=== PATIENT | female | born 1985 | race African-American/Black ===

== ENCOUNTER 2017-03-03 09:08 | Inpatient (IN) ==
[2017-03-03] MEDS: LACTATED RINGERS 1,000 ML IV SCH (11:48)
[2017-03-03] MEDS ORDERED: BUTORPHANOL 2 MG/ML VIAL IV PRN (12:02)
[2017-03-03 12:22] LABS: Basophils % 0.2 % (0.0-0.8); Eosinophils % 0.2 % (0.00-10.9); Hematocrit 37.6 VOL% (35.7-47.0); Hemoglobin 12.5 GM/DL (12.0-16.0); Immature Granulocytes % 0.8 %; Lymphocytes # 1.4 10*3/uL (1.4-4.0); Lymphocytes % 10.3 % (21.3-54.2); Mean Corpuscular HGB Conc 33.2 GM/DL (32-36); Mean Corpuscular Hemoglobin 29 PG (27-34); Mean Corpuscular Volume 88.5 FL (87-102); Mean Platelet Volume 12.8 FL (9.6-12.0); Monocytes # 0.6 10*3/uL (0.11-0.8); Monocytes % 4.4 % (1.7-12.7); Neutrophils # 11.1 10*3/uL (1.4-7.4); Neutrophils % 84.1 % (38.7-73.9); Platelet Count 208 T/CUMM (130-400); Red Blood Count 4.25 MC/CUMM (3.8-5.5); White Blood Count 13.2 T/CUMM (4-12)
[2017-03-03] MEDS ORDERED: AMPICILLIN INJ 2,000 MG in SODIUM CHLORIDE 0.9% 50 ML IV ONE (12:28)
[2017-03-03] MEDS ORDERED: OXYTOCIN/LR 20 UNIT/1,000 ML BAG IV SCH (12:30)
[2017-03-03] MEDS: ONDANSETRON 4 MG/2 ML VIAL IV PRN (12:41)
[2017-03-03 13:00] LABS: Albumin 2.9 G/DL (3.4-5.0); Bilirubin,Total 0.7 MG/DL (0.2-1.0); Calcium 9.2 MG/DL (8.5-10.1); Potassium 3.6 MMOL/L (3.5-5.1); Total Protein 7.9 G/DL (6.4-8.3)
[2017-03-03] MEDS ORDERED: CITRIC ACID/SODIUM CITRATE 30 ML UDCUP PO ONE (14:02)
[2017-03-03] MEDS ORDERED: diphenhydrAMINE 50 MG/1 ML VIAL IV PRN ×3 (14:02→20:20)
[2017-03-03] MEDS ORDERED: PROMETHAZINE 25 MG/1 ML VIAL IM ONE (14:02)
[2017-03-03] MEDS ORDERED: ePHEDrine 50 MG/ML AMP IV PRN (14:02)
[2017-03-03] MEDS ORDERED: hydrOXYzine HCL 25 MG/1 ML VIAL IM PRN ×2 (14:02→20:20)
[2017-03-03] MEDS ORDERED: ONDANSETRON 4 MG/2 ML VIAL IV ONE (14:02)
[2017-03-03] MEDS ORDERED: FAMOTIDINE 20 MG/2 ML VIAL IV ONE (14:02)
[2017-03-03] MEDS ORDERED: LACTATED RINGERS 1,000 ML IV ONE (14:02)
[2017-03-03] MEDS ORDERED: fentaNYL 2 MCG/ROPIV 0.2% EPID 150 ML EPIDURAL SCH (14:30)
[2017-03-03] MEDS ORDERED: AMPICILLIN INJ 1,000 MG in SODIUM CHLORIDE 0.9% 50 ML IV SCH (16:00)
[2017-03-03] MEDS ORDERED: AMPICILLIN 1,000 MG VIAL ONE (16:10)
[2017-03-03] MEDS ORDERED: SODIUM CHLORIDE 0.9% 50 ML IV ONE (16:10)
[2017-03-03 16:54] LABS: Apearance,Urine CLEAR (Clear); Bacteria,Urine Occasional /HPF (Few); Bilirubin,Urine Negative (Negative); Blood, Urine Negative (Negative); Glucose,Urine (UA) Negative (Negative); Ketones,Urine 20 mg/dL (Negative); Mucus,Urine Occasional /LPF (Occasional); Nitrite,Urine Negative (Negative); Protein,Urine 30 MG/DL; RBC,Urine 1 /HPF (0-4); Squamous Epithelial Cell,Urine Occasional /HPF (0-10); Urine Color Yellow (Yellow); Urine Specific Gravity 1.025 (1.001-1.035); WBC,Urine 1 /HPF (0-6)
[2017-03-03] MEDS ORDERED: TISSUE ADHESIVE 1 EACH APPLICATOR TOP ONE (18:00)
[2017-03-03] MEDS ORDERED: TERBUTALINE 1 MG/1 ML VIAL SUBCUT ONE (18:04)
[2017-03-03] MEDS ORDERED: FLUORESCEIN 500 MG/5 ML VIAL IV ONE (19:16)
[2017-03-03 19:20] LABS: Cord Arterial Blood HCO3 15.5 MMOL/L
[2017-03-03 19:23] LABS: Cord Venous Blood HCO3 19.2 MMOL/L; Cord Venous Blood PCO2 56.9 MMHG; Cord Venous Blood PO2 10.9
[2017-03-03] MEDS ORDERED: ONDANSETRON 4 MG/2 ML VIAL IV PRN (20:20)
[2017-03-03] MEDS ORDERED: HYDROmorphone 2 MG/1 ML VIAL IV PRN (20:20)
[2017-03-03] MEDS ORDERED: MORPHINE 10 MG/10 ML VIAL ONE (20:25)
[2017-03-03] MEDS ORDERED: ACETAMINOPHEN 1,000 MG/100 ML VIAL IV ONE (20:26)
[2017-03-03] MEDS ORDERED: SODIUM CHLORIDE 0.9% 1,000 ML IV SCH (20:30)
[2017-03-03] MEDS ORDERED: LACTATED RINGERS 1,000 ML IV SCH (20:30)
[2017-03-04 01:19] LABS: Basophils % 0.1 % (0.0-0.8); Hematocrit 29.3 VOL% (35.7-47.0); Hemoglobin 9.7 GM/DL (12.0-16.0); Immature Granulocytes % 0.7 %; Immature Granulocytes Absolute 0.13 #; Lymphocytes # 1.6 10*3/uL (1.4-4.0); Lymphocytes % 8.8 % (21.3-54.2); Mean Corpuscular HGB Conc 33.1 GM/DL (32-36); Mean Corpuscular Hemoglobin 30 PG (27-34); Mean Corpuscular Volume 89.1 FL (87-102); Mean Platelet Volume 13.1 FL (9.6-12.0); Monocytes # 1.1 10*3/uL (0.11-0.8); Neutrophils # 15.6 10*3/uL (1.4-7.4); Neutrophils % 84.4 % (38.7-73.9); Platelet Count 195 T/CUMM (130-400); Red Blood Count 3.29 MC/CUMM (3.8-5.5); Red Cell Distribution Width 14.1 % (9.3-17.3); White Blood Count 18.5 T/CUMM (4-12)
[2017-03-04] MEDS: ONDANSETRON 4 MG/2 ML VIAL IV PRN (01:45)
[2017-03-04] MEDS: ceFAZolin 2,000 MG in PREMIX 1 EACH IV SCH ×3 (01:50→17:25)
[2017-03-04] MEDS: LACTATED RINGERS 1,000 ML IV SCH (05:54)
[2017-03-04 06:17] LABS: Basophils % 0.1 % (0.0-0.8); Eosinophils % 0.1 % (0.00-10.9); Hematocrit 29.2 VOL% (35.7-47.0); Hemoglobin 9.5 GM/DL (12.0-16.0); Immature Granulocytes % 0.7 %; Immature Granulocytes Absolute 0.11 #; Lymphocytes # 1.6 10*3/uL (1.4-4.0); Lymphocytes % 9.6 % (21.3-54.2); Mean Corpuscular HGB Conc 32.5 GM/DL (32-36); Mean Corpuscular Hemoglobin 29 PG (27-34); Mean Corpuscular Volume 90.1 FL (87-102); Mean Platelet Volume 12.7 FL (9.6-12.0); Monocytes # 1.1 10*3/uL (0.11-0.8); Monocytes % 6.5 % (1.7-12.7); Neutrophils # 13.9 10*3/uL (1.4-7.4); Platelet Count 179 T/CUMM (130-400); Red Blood Count 3.24 MC/CUMM (3.8-5.5); Red Cell Distribution Width 14.3 % (9.3-17.3); White Blood Count 16.7 T/CUMM (4-12)
[2017-03-04] MEDS: IBUPROFEN 800 MG TABLET PO PRN (13:51)
[2017-03-04] MEDS ORDERED: SIMETHICONE CHEW 80 MG TABLET PO PRN (15:49)
[2017-03-04] MEDS: MAGNESIUM HYDROXIDE SUSP 30 ML UDCUP PO PRN ×2 (16:04→20:18)
[2017-03-05] MEDS: IBUPROFEN 800 MG TABLET PO PRN ×2 (04:07→19:53)
[2017-03-05] MEDS ORDERED: MAGNESIUM CITRATE 300 ML BOTTLE PO ONE (08:48)
[2017-03-05] MEDS: MAGNESIUM HYDROXIDE SUSP 30 ML UDCUP PO PRN (09:01)
[2017-03-05 20:54] LABS: Basophils % 0.1 % (0.0-0.8); Eosinophils # 0.2 10*3/uL (0.0-0.87); Eosinophils % 1.1 % (0.00-10.9); Hemoglobin 9.6 GM/DL (12.0-16.0); Immature Granulocytes % 0.6 %; Immature Granulocytes Absolute 0.09 #; Lymphocytes # 1.8 10*3/uL (1.4-4.0); Lymphocytes % 12.4 % (21.3-54.2); Mean Corpuscular HGB Conc 33.1 GM/DL (32-36); Mean Corpuscular Hemoglobin 29 PG (27-34); Mean Corpuscular Volume 88.7 FL (87-102); Mean Platelet Volume 11.8 FL (9.6-12.0); Monocytes # 0.8 10*3/uL (0.11-0.8); Monocytes % 5.5 % (1.7-12.7); Neutrophils # 11.4 10*3/uL (1.4-7.4); Neutrophils % 80.3 % (38.7-73.9); Platelet Count 238 T/CUMM (130-400); Red Blood Count 3.27 MC/CUMM (3.8-5.5); Red Cell Distribution Width 14.1 % (9.3-17.3); White Blood Count 14.3 T/CUMM (4-12)
[2017-03-06 09:21] VITALS: BP 122/67
== END 2017-03-06 13:45 | disposition home or self-care (01) | DRG 766 ==
LOC: N.LDOUT 09:08 → N.LD 09:13 → N.OB 03-04 01:27
PROVIDERS: ADMIT Obstetrics & Gynecology; ATTEND Obstetrics & Gynecology
PROC: LDCSECT (ICD-10-PCS; 2017-03-03 18:10)